=== PATIENT | female | born 1945 | race Caucasian/White ===

== ENCOUNTER 2018-05-13 13:54 | Inpatient (IN) ==
[2018-05-13] MEDS ORDERED: INFLUENZA VIRUS VACCINE 0.5 ML SYRINGE IM ONE (16:08)
[2018-05-13] MEDS ORDERED: KETOROLAC 30 MG/1 ML VIAL IV PRN (16:55)
[2018-05-13] MEDS ORDERED: ONDANSETRON 4 MG/2 ML VIAL IV PRN (16:55)
[2018-05-13] MEDS ORDERED: diphenhydrAMINE CAP 25 MG CAPSULE PO PRN (16:55)
[2018-05-13] MEDS ORDERED: LACTATED RINGERS 1,000 ML IV SCH (17:00)
[2018-05-13 17:27] LABS: Basophils # 0.1 10*3/uL (0.0-0.2); Basophils % 0.7 % (0.0-0.8); Eosinophils # 0.2 10*3/uL (0.0-0.87); Eosinophils % 2.1 % (0.00-10.9); Hematocrit 45.7 VOL% (35.7-47.0); Immature Granulocytes % 0.6 %; Immature Granulocytes Absolute 0.06 #; Lymphocytes # 3.5 10*3/uL (1.4-4.0); Mean Corpuscular Hemoglobin 27 PG (27-34); Mean Platelet Volume 10.9 FL (9.6-12.0); Monocytes # 0.8 10*3/uL (0.11-0.8); Monocytes % 8.5 % (1.7-12.7); Neutrophils # 5.3 10*3/uL (1.4-7.4); Neutrophils % 53.1 % (38.7-73.9); Platelet Count 249 T/CUMM (130-400); Red Blood Count 5.02 MC/CUMM (3.8-5.5); Red Cell Distribution Width 15.4 % (9.3-17.3); White Blood Count 9.9 T/CUMM (4-12)
[2018-05-13 17:28] LABS: Hemoglobin 13.7 GM/DL (12.0-16.0)
[2018-05-13 17:30] LABS: Albumin 3.2 G/DL (3.4-5.0); Bilirubin,Total 0.4 MG/DL (0.2-1.0); Calcium 8.4 MG/DL (8.5-10.1); Osmolality,Calculated 286.8 MOS/KG (273-304); Potassium 3.7 MMOL/L (3.5-5.1); Total Protein 6.7 G/DL (6.4-8.3)
[2018-05-13] MEDS: MEPERIDINE 25 MG/1 ML VIAL IV PRN ×2 (17:37→21:29)
[2018-05-13] MEDS ORDERED: DOCUSATE SODIUM 100 MG CAPSULE PO PRN (17:42)
[2018-05-13] MEDS: busPIRone 10 MG TABLET PO SCH (20:51)
[2018-05-13] MEDS: BUDESONIDE/FORMOTEROL 160-4.5 INHALER 6 GM INH SCH (20:52)
[2018-05-14] MEDS: MEPERIDINE 25 MG/1 ML VIAL IV PRN ×6 (02:05→20:48)
[2018-05-14] MEDS: VANCOMYCIN INJ 1,000 MG in SODIUM CHLORIDE 0.9% 250 ML IV SCH ×2 (02:41→14:09)
[2018-05-14 04:27] LABS: Basophils # 0.1 10*3/uL (0.0-0.2); Basophils % 0.6 % (0.0-0.8); Eosinophils # 0.3 10*3/uL (0.0-0.87); Eosinophils % 2.8 % (0.00-10.9); Hemoglobin 12.9 GM/DL (12.0-16.0); Immature Granulocytes % 0.5 %; Immature Granulocytes Absolute 0.05 #; Lymphocytes # 2.9 10*3/uL (1.4-4.0); Lymphocytes % 30.5 % (21.3-54.2); Mean Corpuscular Hemoglobin 27 PG (27-34); Mean Platelet Volume 10.9 FL (9.6-12.0); Monocytes # 0.8 10*3/uL (0.11-0.8); Monocytes % 8.5 % (1.7-12.7); Neutrophils # 5.4 10*3/uL (1.4-7.4); Neutrophils % 57.1 % (38.7-73.9); Platelet Count 227 T/CUMM (130-400); Red Blood Count 4.83 MC/CUMM (3.8-5.5); Red Cell Distribution Width 15.1 % (9.3-17.3); White Blood Count 9.4 T/CUMM (4-12)
[2018-05-14] MEDS: PROPRANOLOL 20 MG TABLET PO SCH (08:28)
[2018-05-14] MEDS: RIVAROXABAN 20 MG TABLET PO SCH (08:28)
[2018-05-14] MEDS: DONEPEZIL 10 MG TABLET PO SCH (08:28)
[2018-05-14] MEDS: busPIRone 10 MG TABLET PO SCH ×2 (08:28→20:47)
[2018-05-14] MEDS: LORATADINE 10 MG TABLET PO SCH (08:29)
[2018-05-14] MEDS: BUDESONIDE/FORMOTEROL 160-4.5 INHALER 6 GM INH SCH ×2 (08:30→20:50)
[2018-05-14] MEDS ORDERED: LOVASTATIN 20 MG TABLET PO SCH (09:00)
[2018-05-14 09:37] LABS: Apearance,Urine CLEAR (Clear); Bilirubin,Urine Negative (Negative); Blood, Urine Negative (Negative); Glucose,Urine (UA) Negative (Negative); Ketones,Urine Negative (Negative); Mucus,Urine Occasional /LPF (Occasional); Nitrite,Urine Negative (Negative); Protein,Urine Negative; RBC,Urine <1 /HPF (0-4); Squamous Epithelial Cell,Urine Occasional /HPF (0-10); Urine Color Straw (Yellow); Urine Specific Gravity 1.009 (1.001-1.035); Urine Urobilinogen < 2.0 EU/DL (0.2-1.0); WBC,Urine 1 /HPF (0-6)
[2018-05-14] MEDS: LOVASTATIN 20 MG TABLET PO SCH (20:47)
[2018-05-15] MEDS: MEPERIDINE 25 MG/1 ML VIAL IV PRN ×7 (02:24→23:36)
[2018-05-15] MEDS: VANCOMYCIN INJ 1,000 MG in SODIUM CHLORIDE 0.9% 250 ML IV SCH (02:50)
[2018-05-15 04:53] LABS: Basophils # 0.1 10*3/uL (0.0-0.2); Basophils % 0.5 % (0.0-0.8); Eosinophils # 0.2 10*3/uL (0.0-0.87); Eosinophils % 2.4 % (0.00-10.9); Hematocrit 44.9 VOL% (35.7-47.0); Hemoglobin 13.7 GM/DL (12.0-16.0); Immature Granulocytes % 0.6 %; Immature Granulocytes Absolute 0.06 #; Lymphocytes # 2.5 10*3/uL (1.4-4.0); Lymphocytes % 25.6 % (21.3-54.2); Mean Corpuscular HGB Conc 30.5 GM/DL (32-36); Mean Corpuscular Hemoglobin 27 PG (27-34); Mean Corpuscular Volume 87.2 FL (87-102); Mean Platelet Volume 10.9 FL (9.6-12.0); Monocytes # 0.9 10*3/uL (0.11-0.8); Monocytes % 8.8 % (1.7-12.7); Neutrophils # 6.1 10*3/uL (1.4-7.4); Neutrophils % 62.1 % (38.7-73.9); Platelet Count 241 T/CUMM (130-400); Red Blood Count 5.15 MC/CUMM (3.8-5.5); Red Cell Distribution Width 14.8 % (9.3-17.3); White Blood Count 9.9 T/CUMM (4-12)
[2018-05-15] MEDS: PROPRANOLOL 20 MG TABLET PO SCH (09:00)
[2018-05-15] MEDS: RIVAROXABAN 20 MG TABLET PO SCH (09:01)
[2018-05-15] MEDS: busPIRone 10 MG TABLET PO SCH ×2 (09:01→20:47)
[2018-05-15] MEDS: DONEPEZIL 10 MG TABLET PO SCH (09:01)
[2018-05-15] MEDS: LORATADINE 10 MG TABLET PO SCH (09:01)
[2018-05-15] MEDS: BUDESONIDE/FORMOTEROL 160-4.5 INHALER 6 GM INH SCH ×2 (09:02→20:51)
[2018-05-15] MEDS: DULoxetine 30 MG CAPSULE PO SCH (15:02)
[2018-05-15] MEDS: LOPERAMIDE 2 MG CAPSULE PO PRN (15:32)
[2018-05-15] MEDS: LOVASTATIN 20 MG TABLET PO SCH (20:47)
[2018-05-16] MEDS: MEPERIDINE 25 MG/1 ML VIAL IV PRN ×5 (03:40→23:59)
[2018-05-16 05:01] LABS: Calcium 8.7 MG/DL (8.5-10.1); Osmolality,Calculated 280.3 MOS/KG (273-304); Potassium 3.4 MMOL/L (3.5-5.1)
[2018-05-16] MEDS: DONEPEZIL 10 MG TABLET PO SCH (09:21)
[2018-05-16] MEDS: LORATADINE 10 MG TABLET PO SCH (09:21)
[2018-05-16] MEDS: POTASSIUM CHLORIDE 20 MEQ TABLET PO PRN ×3 (09:21→18:26)
[2018-05-16] MEDS: busPIRone 10 MG TABLET PO SCH ×2 (09:21→21:12)
[2018-05-16] MEDS: PROPRANOLOL 20 MG TABLET PO SCH ×2 (09:21→21:12)
[2018-05-16] MEDS: DULoxetine 30 MG CAPSULE PO SCH (09:22)
[2018-05-16] MEDS: BUDESONIDE/FORMOTEROL 160-4.5 INHALER 6 GM INH SCH ×2 (09:22→21:31)
[2018-05-16] MEDS ORDERED: MEPERIDINE 25 MG/1 ML VIAL IM ONE (10:55)
[2018-05-16] MEDS ORDERED: CITRIC ACID/SODIUM CITRATE 30 ML UDCUP PO ONE (15:18)
[2018-05-16] MEDS: ceFAZolin 1,000 MG in SYRINGE 1 EACH IV SCH (15:21)
[2018-05-16] MEDS ORDERED: VANCOMYCIN 1,000 MG VIAL ONE (15:33)
[2018-05-16] MEDS ORDERED: LIDOCAINE 1% 20 ML VIAL ONE (15:33)
[2018-05-16] MEDS ORDERED: PROPOFOL 200 MG/20 ML VIAL IV ONE (17:10)
[2018-05-16] MEDS ORDERED: fentaNYL 100 MCG/2 ML VIAL ONE (17:10)
[2018-05-16] MEDS ORDERED: MIDAZOLAM 2 MG/2 ML VIAL ONE (17:10)
[2018-05-16] MEDS: VANCOMYCIN INJ 1,250 MG in SODIUM CHLORIDE 0.9% 250 ML IV SCH (18:30)
[2018-05-16] MEDS: HYDROmorphone 2 MG/1 ML VIAL IV PRN (21:12)
[2018-05-16] MEDS: LOVASTATIN 20 MG TABLET PO SCH (21:12)
[2018-05-17] MEDS: ceFAZolin 1,000 MG in SYRINGE 1 EACH IV SCH ×2 (00:07→06:08)
[2018-05-17] MEDS: HYDROmorphone 2 MG/1 ML VIAL IV PRN ×2 (02:50→07:54)
[2018-05-17] MEDS: LOPERAMIDE 2 MG CAPSULE PO PRN (03:05)
[2018-05-17] MEDS: VANCOMYCIN INJ 1,250 MG in SODIUM CHLORIDE 0.9% 250 ML IV SCH (03:06)
[2018-05-17] MEDS: MEPERIDINE 25 MG/1 ML VIAL IV PRN ×2 (06:15→10:12)
[2018-05-17 07:36] VITALS: BP 127/89
[2018-05-17] MEDS: DONEPEZIL 10 MG TABLET PO SCH (09:37)
[2018-05-17] MEDS: DULoxetine 30 MG CAPSULE PO SCH (09:37)
[2018-05-17] MEDS: BUDESONIDE/FORMOTEROL 160-4.5 INHALER 6 GM INH SCH (09:37)
[2018-05-17] MEDS: LORATADINE 10 MG TABLET PO SCH (09:37)
[2018-05-17] MEDS: PROPRANOLOL 20 MG TABLET PO SCH (09:37)
[2018-05-17] MEDS: busPIRone 10 MG TABLET PO SCH (09:37)
[2018-05-17] MEDS ORDERED: PNEUMOCOCCAL VACCINE (23 VALENT) 0.5 ML VIAL IM ONE (10:21)
== END 2018-05-17 11:10 | disposition home or self-care (01) | DRG 29 ==
LOC: N.3E → SUATTDRO 15:43 → SUPCPDRO 17:05
PROVIDERS: ADMIT Internal Medicine; ATTEND Internal Medicine